=== PATIENT | female | born 1980 | race Two or more races ===

== ENCOUNTER 2024-11-02 17:45 | Emergency (ER) | payer OTHER ==
[2024-11-02 17:53] VITALS: BP 145/99; PULSE 80; RESP 18; TEMP 99; BMI 27.8
[2024-11-02] MEDS ORDERED: ALBUTEROL SO4 2.5/IPRATROPIUM 0.5 INH SOL 3 ML VIAL.NEB. NEB ONE (18:21)
[2024-11-02] MEDS ORDERED: ALBUTEROL SO4 HFA INHALER IH ONE (18:46)
[2024-11-02] MEDS ORDERED: LORATADINE 10 MG TABLET ONE (18:46)
[2024-11-02] MEDS: ALBUTEROL SO4 HFA INHALER IH ONE (18:47)
[2024-11-02] MEDS: LORATADINE 10 MG TABLET PO ONE (18:47)
[2024-11-02] MEDS: PSEUDOEPHEDRINE HCL 60 MG TABLET PO SCH (18:48)
== END 2024-11-02 19:09 | disposition home or self-care (01) ==
LOC: JERFT 17:45
DX: J45.901 Unspecified asthma with (acute) exacerbation (principal); R06.02 Shortness of breath; R07.89 Other chest pain; R03.0 Elevated blood-pressure reading, without diagnosis of hypertension; J34.3 Hypertrophy of nasal turbinates
CPT/HCPCS: 0241U-QW; 99283-25